=== PATIENT | female | born 1950 | race American Indian/Alaskan Native ===

== ENCOUNTER 2017-06-05 03:31 | Inpatient (IN) | payer MEDICARE, OTHER ==
[2017-06-05] MEDS ORDERED: CATAPRES PO ONE (09:58)
--- NOTE | 2017-06-05 09:59 | Emergency Department Report ---
Chief Complaint: Headache Stated Complaint: POSS HIGH BP Time Seen by Provider: 06/05/17 09:54 - HPI History of Present Illness: Patient is a 67-year-old female with a history of high blood pressure on the sugar pill and atenolol who presents to ED for elevated blood pressure. Patient states she had a recent friend on and she went to go see her body yesterday. Patient states since yesterday she is elevated blood pressure with mild generalized 6/10 headache. She denies blurry vision, trauma to the head she denies fever chills nausea vomiting chest pain or shortness of breath. - ROS Review of Systems: As noted in HPI - Exam Vital Signs: Vital Signs 06/05/17 06/05/17 04:05 09:41 Temperature 98 F 98.5 F Pulse Rate 74 74 Respiratory 18 18 Rate Blood Pressure 176/87 169/103 O2 Sat by Pulse 97 100 Oximetry Physical Exam: GENERAL: Alert and oriented x3, no apparent distress, Normal Gait, atraumatic. HEAD: Head is normocephalic and a-traumatic. HEART: S1, S2 present, regular rate and rhythm without murmur, no rubs, no gallops. Non tender to palpation NEUROLOGIC: The patient is cooperative with no focal neurologic deficits.Normal speech. MSE screening note: Focused history and physical exam performed. Due to findings the following was ordered: ED Medical Decision Making - Medical Decision Making Basic labs ordered. EKG ordered. Patient is in no acute distress. Patient possibly could be seen by FT provider if blood pressure response to one dose of clonidine. Normal labs ED Disposition for MSE Condition: Stable
[2017-06-05 10:36] LABS: Basophils % (Auto) 0.4 % (0.0-1.8); Eosinophils % (Auto) 1.4 % (0.0-4.3); Hematocrit 42.9 % (30.3-42.9); Hemoglobin 13.6 gm/dl (10.1-14.3); Mean Corpuscular HGB Conc 32 % (30-34); Mean Corpuscular Hemoglobin 29 pg (28-32); Mean Corpuscular Volume 90 fl (79-97); Platelet Count 193 K/mm3 (140-440); Red Blood Count 4.75 M/mm3 (3.65-5.03); Red Cell Distribution Width 14.2 % (13.2-15.2); White Blood Count 9.2 K/mm3 (4.5-11.0)
[2017-06-05] MEDS ORDERED: APRESOLINE IV ONE (10:47)
[2017-06-05] MEDS ORDERED: NITROSTAT SL PRN (10:47)
--- NOTE | 2017-06-05 10:49 | Emergency Department Report ---
ED General Adult HPI - General Chief complaint: Headache Stated complaint: POSS HIGH BP Time Seen by Provider: 06/05/17 09:54 Source: patient, RN notes reviewed Mode of arrival: Ambulatory Limitations: No Limitations - History of Present Illness Initial comments: This is a 67-year-old female. She is previously unknown to me. Her primary care doctor's with the [facility]. She has a past medical history of hypertension and hammertoes. The patient presents to the ER with headache. The headache started this past . She describes the headache as "thumping." The headache is not sudden or thunderclap in nature. It is not maximal in intensity. It is not the worst headache of her life. It got worse over the weekend. It waxes and wanes. There is no blurry vision, loss of vision, or pain with chewing or swallowing food. There is no extremity weakness or numbness. There is no abdominal pain. There is no ataxia. Patient reports that she has been taking atenolol and lisinopril. Patient also admitted to chest pressure and burning on review of systems. The chest pressure as central and left-sided, and lasted for 15 minutes in the morning. It was not associated with vomiting, shortness of breath or diaphoresis. There is no leg pain. There is no leg swelling. No recent trips greater than 4 hours. No recent hospitalizations. No recent cardiac stress test. -: Gradual Location: head, chest Radiation: non-radiation Severity scale (0 -10): 0 Quality: stabbing Consistency: intermittent Improves with: none Worsens with: none Associated Symptoms: chest pain, headaches - Related Data Home Medications Medication Instructions Recorded Confirmed Last Taken Atenolol [Tenormin] 25 mg PO DAILY 06/05/17 06/05/17 06/04/17 Lisinopril/Hydrochlorothiazide 2 each PO DAILY 06/05/17 06/05/17 06/04/17 [Zestoretic 20-12.5 mg] Meloxicam [Mobic] 7.5 mg PO QDAY 06/05/17 06/05/17 Unknown Potassium Chloride [K-Dur] 20 meq PO DAILY 06/05/17 06/05/17 Unknown traMADol [Ultram] 50 mg PO Q6HR PRN 06/05/17 06/05/17 06/04/17 Allergies Allergy/AdvReac Type Severity Reaction Status Date / Time No Known Allergies Allergy Verified 06/05/17 11:23 ED Review of Systems ROS: Stated complaint: POSS HIGH BP Other details as noted in HPI Constitutional: malaise. denies: fever Eyes: denies: eye discharge, vision change ENT: denies: throat pain Respiratory: denies: cough Cardiovascular: chest pain Gastrointestinal: denies: vomiting Genitourinary: as per HPI Musculoskeletal: as per HPI Skin: as per HPI Neurological: as per HPI, headache Psychiatric: as per HPI ED Past Medical Hx - Past Medical History Previous Medical History?: Yes Hx Hypertension: Yes - Surgical History Past Surgical History?: Yes Additional Surgical History: HAMMER TOES - Social History Smoking Status: Never Smoker Substance Use Type: None - Medications Home Medications: Home Medications Medication Instructions Recorded Confirmed Last Taken Type Atenolol [Tenormin] 25 mg PO DAILY 06/05/17 06/05/17 06/04/17 History Lisinopril/Hydrochlorothiazide 2 each PO DAILY 06/05/17 06/05/17 06/04/17 History [Zestoretic 20-12.5 mg] Meloxicam [Mobic] 7.5 mg PO QDAY 06/05/17 06/05/17 Unknown History Potassium Chloride [K-Dur] 20 meq PO DAILY 06/05/17 06/05/17 Unknown History traMADol [Ultram] 50 mg PO Q6HR PRN 06/05/17 06/05/17 06/04/17 History ED Physical Exam - General Limitations: No Limitations General appearance: alert, in no apparent distress - Head Head exam: Present: atraumatic, normocephalic - Eye Eye exam: Present: normal appearance, PERRL, EOMI, other (visual acuity intact to finger counting, color perception, reading at a close distance). Absent: nystagmus - ENT ENT exam: Present: normal exam, normal orophraynx, mucous membranes moist, normal external ear exam - Neck Neck exam: Present: normal inspection, full ROM. Absent: tenderness, meningismus - Respiratory Respiratory exam: Present: normal lung sounds bilaterally. Absent: respiratory distress, wheezes, rales, rhonchi, stridor, chest wall tenderness, accessory muscle use, decreased breath sounds, prolonged expiratory - Cardiovascular Cardiovascular Exam: Present: regular rate, normal rhythm, normal heart sounds. Absent: bradycardia, tachycardia, irregular rhythm, systolic murmur, diastolic murmur, rubs, gallop - GI/Abdominal GI/Abdominal exam: Present: soft, normal bowel sounds. Absent: distended, tenderness, guarding, rebound, rigid, pulsatile mass - Extremities Exam Extremities exam: Present: normal inspection, full ROM, normal capillary refill. Absent: tenderness, pedal edema, joint swelling, calf tenderness - Back Exam Back exam: Present: normal inspection, full ROM. Absent: tenderness, CVA tenderness (R), CVA tenderness (L), muscle spasm, paraspinal tenderness, vertebral tenderness - Neurological Exam Neurological exam: Present: alert, oriented X3, normal gait, other (Extraocular movements intact. Tongue midline. No facial droop. Facial sensation intact to light touch in the V1, V2, V3 distribution bilaterally. 5 and 5 strength in 4 extremities.. Sensation is intact to light touch in 4 extremities.). Absent : motor sensory deficit - Psychiatric Psychiatric exam: Present: normal affect, normal mood - Skin Skin exam: Present: warm, dry, intact, normal color. Absent: rash ED Course Vital Signs 06/05/17 06/05/17 06/05/17 04:05 09:41 10:19 Temperature 98 F 98.5 F Pulse Rate 74 74 74 Respiratory 18 18 Rate Blood Pressure 176/87 169/103 169/103 Blood Pressure [Left] O2 Sat by Pulse 97 100 Oximetry 06/05/17 06/05/17 06/05/17 10:30 10:41 10:42 Temperature Pulse Rate 82 85 86 Respiratory 19 20 18 Rate Blood Pressure 202/103 Blood Pressure 200/99 [Left] O2 Sat by Pulse 97 98 97 Oximetry 06/05/17 06/05/17 06/05/17 10:56 11:04 11:15 Temperature Pulse Rate 80 Respiratory 18 Rate Blood Pressure 202/103 182/108 Blood Pressure [Left] O2 Sat by Pulse 97 100 Oximetry 06/05/17 06/05/17 06/05/17 11:16 11:21 11:30 Temperature Pulse Rate 113 H Respiratory 15 Rate Blood Pressure 182/108 182/108 143/79 Blood Pressure [Left] O2 Sat by Pulse 90 98 96 Oximetry 06/05/17 06/05/17 06/05/17 11:41 11:51 12:00 Temperature Pulse Rate 101 H 109 H 101 H Respiratory 21 22 22 Rate Blood Pressure 143/79 182/108 113/51 Blood Pressure [Left] O2 Sat by Pulse 97 97 96 Oximetry 06/05/17 06/05/17 06/05/17 12:11 12:21 12:30 Temperature Pulse Rate 91 H 89 94 H Respiratory 20 19 19 Rate Blood Pressure 113/51 115/59 105/57 Blood Pressure [Left] O2 Sat by Pulse 96 98 97 Oximetry 06/05/17 06/05/17 06/05/17 12:41 12:51 13:00 Temperature Pulse Rate 97 H 89 88 Respiratory 15 17 14 Rate Blood Pressure 105/57 101/52 97/56 Blood Pressure [Left] O2 Sat by Pulse 98 95 97 Oximetry 06/05/17 06/05/17 06/05/17 13:11 13:30 13:41 Temperature Pulse Rate 86 76 71 Respiratory 15 18 16 Rate Blood Pressure 97/56 99/49 99/49 Blood Pressure [Left] O2 Sat by Pulse 97 98 97 Oximetry 06/05/17 06/05/17 06/05/17 14:00 14:11 14:21 Temperature Pulse Rate 67 67 69 Respiratory 14 15 19 Rate Blood Pressure 85/47 85/47 87/43 Blood Pressure [Left] O2 Sat by Pulse 99 97 98 Oximetry 06/05/17 06/05/17 06/05/17 14:30 14:35 14:41 Temperature 97.8 F Pulse Rate 77 65 76 Respiratory 29 H 17 13 Rate Blood Pressure 92/40 92/40 Blood Pressure 90/45 [Left] O2 Sat by Pulse 98 99 98 Oximetry - Reevaluation(s) Reevaluation #1: 06/05/17 11:44 differential diagnosis: Migraine headache, tension headache, cluster headache, intracranial hemorrhage, hypertensive urgency, acute coronary syndrome, pneumonia, GERD, gastritis Assessment and plan: 67-year-old female with a primary complaint of headache and hypertension. She is afebrile with reassuring vital signs with the exception of hypertension/elevated blood pressure. Her headache is not historically consistent with subarachnoid hemorrhage or temporal arteritis. She has a GCS of 15, with an NIH score of 0, there is no temporal tenderness, and there is no jaw claudication. A noncontrast CT scan of the brain is negative. There are no pulmonary embolus or DVT risk factors, and the patient is low risk by well's criteria. Her initial EKG is morphologically abnormal and concerning, with ST abnormalities in the inferior and lateral leads, and ST abnormalities in aVR, V1 and V2. Does not morphologically consistent with STEMI , and repeat EKG did not demonstrate any emergent changes, with the exception of some premature ventricular contractions. The case is discussed with cardiology, Dr. Houston, who will follow as a consult for abnormal EKG in the context of hypertension. The case is presented to the Hospital physician, Dr. Colbert, who accepts the patient to his service. The case is discussed with the [place] physician on-call, Dr. Ceasar Alvarado, who has sent the patient's old/prior EKGs, and he appeared to be changed when compared the patient's current EKGs. Currently, the patient is pain-free, resting comfortably, in no distress. ED Medical Decision Making - Lab Data Result diagrams: 06/05/17 10:06 06/05/17 10:06 Vital Signs 06/05/17 06/05/17 06/05/17 04:05 09:41 10:19 Temperature 98 F 98.5 F Pulse Rate 74 74 74 Respiratory 18 18 Rate Blood Pressure 176/87 169/103 169/103 Blood Pressure [Left] O2 Sat by Pulse 97 100 Oximetry 06/05/17 06/05/17 06/05/17 10:42 10:56 11:15 Temperature Pulse Rate 86 80 Respiratory 18 18 Rate Blood Pressure 182/108 Blood Pressure 200/99 [Left] O2 Sat by Pulse 97 97 Oximetry Lab Results 06/05/17 06/05/17 Range/Units 10:06 10:06 WBC 9.2 (4.5-11.0) K/mm3 RBC 4.75 (3.65-5.03) M/mm3 Hgb 13.6 (10.1-14.3) gm/dl Hct 42.9 (30.3-42.9) % MCV 90 (79-97) fl MCH 29 (28-32) pg MCHC 32 (30-34) % RDW 14.2 (13.2-15.2) % Plt Count 193 (140-440) K/mm3 Lymph % (Auto) 22.7 (13.4-35.0) % [place] % (Auto) 10.5 H (0.0-7.3) % Eos % (Auto) 1.4 (0.0-4.3) % Baso % (Auto) 0.4 (0.0-1.8) % Lymph # 2.1 (1.2-5.4) K/mm3 [place] # 1.0 H (0.0-0.8) K/mm3 Eos # 0.1 (0.0-0.4) K/mm3 Baso # 0.0 (0.0-0.1) K/mm3 Seg Neutrophils % 65.0 (40.0-70.0) % Seg Neutrophils # 6.0 (1.8-7.7) K/mm3 Sodium 141 (137-145) mmol/L Potassium 2.8 L* (3.6-5.0) mmol/L Chloride 93.9 L (98-107) mmol/L Carbon Dioxide 29 (22-30) mmol/L Anion Gap 21 mmol/L BUN 17 (7-17) mg/dL Creatinine 0.6 L (0.7-1.2) mg/dL Estimated GFR > 60 ml/min BUN/Creatinine Ratio 28.33 % Glucose 96 (65-100) mg/dL Calcium 9.7 (8.4-10.2) mg/dL - EKG Data When compared to previous EKG there are: changes noted 06/05/17 11:47 EKG #1 demonstrates sinus, 64 bpm, normal intervals, normal axis, ST depression in the inferior and lateral leads, poor R progression, not morphologically consistent with STEMI, appears changed when compared to prior EKG from [facility], 01/02/2017. EKG #2 demonstrates sinus, 86 bpm, premature ventricular contractions, persistent ST abnormalities in the inferior and lateral leads, improvement in poor PROGRESSION, not morphologically consistent with STEMI - Radiology Data Radiology results: report reviewed, image reviewed interpreted by me: X-ray of the chest is negative for acute disease Noncontrast CT scan of the brain demonstrates no findings that are acute. Chronic changes noted Critical care attestation.: If time is entered above; I have spent that time in minutes in the direct care of this critically ill patient, excluding procedure time. ED Disposition Clinical Impression: Hypertensive urgency, Acute electrocardiogram changes, Hypokalemia Headache Qualifiers: Headache type: tension-type Disposition: OP ADMIT IP TO THIS HOSP Is pt being admited?: Yes Does the pt Need Aspirin: Yes Condition: Stable
[2017-06-05 10:54] LABS: Anion Gap 21 mmol/L; BUN/Creatinine Ratio 28.33; Blood Urea Nitrogen 17 mg/dL (7-17); Calcium 9.7 mg/dL (8.4-10.2); Carbon Dioxide 29 mmol/L (22-30); Chloride 93.9 mmol/L (98-107); Glucose 96 mg/dL (65-100); Sodium 141 mmol/L (137-145)
--- NOTE | 2017-06-05 11:11 | Cat Scan Report ---
Cranial CT without contrast. History: Hypertension/headache. Findings: There is no evidence of an acute hemorrhage or infarct. The posterior fossa is unremarkable. The ventricles are normal in size and contour. There are no masses or extra-axial collections. Mild hypodensities are seen in the periventricular white matter. The calvarium is intact. Impression: No acute findings.
[2017-06-05 11:15] LABS: Potassium 2.8 mmol/L (3.6-5.0)
[2017-06-05] MEDS ORDERED: MAGNESIUM SULFATE 2GM/50ML 2 GM/50 ML BAG IV ONE (11:21)
[2017-06-05] MEDS ORDERED: K-DUR PO ONE ×3 (11:21→14:49)
--- NOTE | 2017-06-05 11:46 | XRay Report ---
ROUTINE CHEST, TWO VIEWS: HISTORY: chest pain. The trachea, heart, mediastinal contour, lung mi and bony thorax are unremarkable. IMPRESSION: Unremarkable chest x-ray.
[2017-06-05] MEDS ORDERED: BABY ASPIRIN PO ONE (11:48)
[2017-06-05 12:00] LABS: INR 0.98 (0.87-1.13)
--- NOTE | 2017-06-05 12:03 | Admit Criteria Form ---
Admission Criteria Documentation: CARDIOLOGY GRG Clinical Indications for Admission to Inpatient Care ( Place 'X' for any and all applicable criteria): Hospital admission is needed for appropriate care of the patient because of ANY ONE of the following (1): [ ] I. Hemodynamic instability as indicated by ALL of the following (1)(2)(3) (4)(5) [ ]a) Vital signs or other findings not as expected for chronic patient condition or baseline [ ]b) Instability indicated by ANY ONE of the following: [ ]i) Hypotension [ ]ii) Symptomatic Tachycardia unresponsive to treatment ( e.g., analgesia, fluids, sedation as indicated) [ ]iii) Inadequate perfusion indicated by ANY ONE of the following: [ ] 1) Lactic acidosis (> 2 mmol/L) [ ] 2) New abnormal capillary refill (> 3 seconds) [ ] 3) Reduced urine output [ ] 4) New altered mental status [ ]iv) Orthostatic vital sign changes unresponsive to treatment (e.g., fluids) [ ]v) IV inotropic or vasopressor medication required to maintain adequate blood pressure or perfusion [ ] II. Severe heart failure as indicated by ANY ONE of the following(17)(18) [ ]a) Respiratory distress [ ]b) Hypotension [ ]c) Anasarca (refractory to outpatient therapy) [ ]d) Cardiac arrhythmias of immediate concern [ ]e) Myocardial ischemia [ ] III. Cardiac arrhythmias or findings of immediate concern indicated by ANY ONE of the following (19)(20): [ ] a) Heart rhythms that are inherently dangerous or unstable indicated by ANY ONE of the following (21)(22)(23): [ ] i) Resuscitated ventricular fibrillation or cardiac arrest [ ] ii) Ventricular escape rhythm [ ] iii) Sustained ventricular tachycardia (30 seconds or more of ventricular rhythm at greater than 100 beats per minute) [ ] iv) Nonsustained ventricular tachycardia and ANY ONE of the following: [ ] 1) Suspected cardiac ischemia as cause or consequence of ventricular tachycardia [ ] 2) In setting of acute myocarditis [ ] b) Unstable cardiac conduction defects indicated by ANY ONE of the following(23)(24)(25) [ ] i) Type II second-degree atrioventricular block [ ]ii) Third-degree atrioventricular block [ ]iii) New-onset left bundle branch block with suspected myocardial ischemia [ ]c) Any heart rhythm and ANY ONE of the following (21)(22)(26)(27) (28) [ ] i) Continuous long-term ECG monitoring needed (e.g., initiation of drug requiring monitoring for more than 24 hours) [ ] ii) Patient has automatic implanted cardioverter defibrillator that is repeatedly firing, malfunctioning, or in need of immediate adjustment of settings beyond the scope of ambulatory or observation care [ ]d) Heart rhythms of concern due to ANY ONE of the following: [ ] i) Hypotension [ ] ii) Respiratory distress [ ] iii) Association with other significant symptoms (e.g., bradycardia with syncope or ongoing dizziness, supraventricular tachycardia with chest pain (14)(15)(17) [ ] IV. Monitoring for cardiac contusion beyond the scope of observation care needed [A](30)(31)(32) [ ] V. Surgical or device complication (e.g., valve replacement complication , pacemaker dysfunction) (35)(41)(44)(45)(46) [ ] . Inpatient palliative care needed. [B](49) Also use Inpatient Palliative Care Criteria [ ] VII. Nonbacterial thrombotic (marantic) endocarditis (36)(43)(47)(48) [X] VIII. Cardiology condition, symptom, or finding for which emergency and observation care has failed or are not considered appropriate. [ ] IX. Acute valvular disease requiring inpatient as indicated by ANY ONE of the following (41) [ ]a) Acute valvular regurgitation (42) [ ]b) Noninfectious valvulitis (43) [ ]c) Obstructive valve thrombosis [ ]d) Paravalvular leak [ ]e) Other significant valvular disorder remaining after emergency or observation level of care (as appropriate) [ ]X. Pericardial disease requiring inpatient treatment as indicated by ANY ONE of the following (33)(34)(35)(36)(37) [ ]a) Suspected tamponade (38)(39)(40) [ ]b) Hemopericardium [ ]c) Other significant pericardial disorder remaining after emergency or observation level of care (as appropriate) [ ] XI. Cardiac ischemia beyond scope of emergency and observation care. [ ] XII. Hypertension requiring inpatient treatment as indicated by ANY ONE of the following (6)(7)(8) [ ]a) SBP greater than 220 mm Hg or DBP greater than 120 mmHg despite treatment [ ]b) SBP greater than 140 mm Hg or DBP greater than 100 mm Hg with evidence of acute end organ damage as indicated by ANY ONE of the following [ ] i) Altered mental status [ ] ii) Acute renal failure as indicated by new onset of ANY ONE of the following (9)(10)(11)(12)(13) [ ]1) 3-fold rise in serum creatinine from baseline [ ]2) Serum creatinine greater than 4 mg/dL ( 354 micromoles/L) with acute rise greater than 0.5 mg/dL (44.2 micromoles/L) [ ]3) Reduction of more than 75% in estimated glomerular filtration rate from baseline [ ]4) Estimated glomerular filtration rate less than 35 mL/min/1.73m2 (0.59 mL/sec/1.73m2) in child up to 18 years of age [ ]5) Cessation of urine output indicated by ALL of the following [ ]A. Adequate volume status [ ]B. Inadequate urine output as indicated by ANY ONE of the following [ ]a. Urine output less than 0.3 mL/kg/hr for 24 hours [ ]b. Anuria (urine output less than 0.1 mL/kg/hr) for 12 hours [ ] iii) Aortic dissection [ ] iv) Myocardial Ischemia [ ] v) Left ventricular heart failure [ ]vi) Retinal Hemorrhage [ ]vii) Other significant finding [ ]c) Hypertension in child requiring inpatient treatment as indicated by ALL of the following(14)(15)(16) [ ] i) Outpatient treatment not effective, not available, or not appropriate [ ]ii) SBP or DBP greater than 95th percentile for age [ ]iii) Evidence of acute end organ damage as indicated by ANY ONE of the following [ ]1) Altered mental status [ ]2) Acute renal failure as indicated by new onset of ANY ONE of the following(9)(10)(11)(12)(13) [ ]A. 3-fold rise in serum creatinine from baseline [ ]B. Serum creatinine greater than 4 mg/dL (354 micromoles/L) with acute rise greater than 0.5 mg/dL (44.2 micromoles/L) [ ]C. Reduction of more than 75% in estimated glomerular filtration rate from baseline [ ]D. Estimated glomerular filtration rate less than 35 mL/min/1.73m2 (0.59 mL/sec/1.73m2) in child up to 18 years of age [ ]E. Cessation of urine output indicated by ALL of the following [ ]a. Adequate volume status [ ]b. Inadequate urine output as indicated by ANY ONE of the following [ ]i) Urine output less than 0.3 mL/kg/hr for 24 hours [ ]ii) Anuria ( urine output less than 0.1 mL/kg/hr) for 12 hours [ ]3) Severe headache [ ]4) Visual disturbance [ ]5) Retinal hemorrhage [ ]6) Other significant finding [ ]XIII. Complications of transplanted heart indicated by ANY ONE of the following(61): [ ]a) Acute graft rejection requiring inpatient management (eg, intravenous immunosuppression)(62)(63) [ ]b) Acute graft heart failure indicated by ANY ONE of the following(64): [ ]i) Hemodynamic instability [ ]ii) Cardiac arrhythmias of immediate concern [ ]iii) Pulmonary edema that is very severe (eg, mechanical ventilation needed, imminent or likely, need for 100% oxygen to keep oxygen saturation above 90%) [ ]iv) Pulmonary edema that is persistent as indicated by ALL of the following: [ ]1) New need for oxygen therapy to keep oxygen saturation above 90% (or increased FiO2 need from baseline) [ ]2) Has not improved sufficiently with emergency department or observation care IV diuretics or other heart failure treatments[E] [ ]v) Altered mental status that is severe or persistent [ ]vi) Increased creatinine (new on laboratory test) with reduction of more than 50% in estimated glomerular filtration rate from baseline [ ]vii) Progressively (ongoing) rising creatinine (known from past laboratory test) with reduction of more than 25% in estimated glomerular filtration rate from baseline [ ]viii) Acute renal failure [ ]ix) Acute peripheral ischemia (eg, examination shows pulseless, cool, mottled, or cyanotic extremity) [ ]x) Pulmonary artery catheter monitoring needed [ ]xi) Other sign or symptom of heart failure requiring inpatient treatment (ie, too severe or not responsive to outpatient and observation care treatment) [ ]c) Infection requiring inpatient management (eg, Hemodynamic instability, need for intravenous antimicrobial treatment)(66)(67)(68)(69)(70) [ ]d) Cardiac allograft vasculopathy requiring inpatient management ( eg evidence of cardiac ischemia)(71) [ ]e) Other complication of transplanted heart (eg, stroke, severe pulmonary hypertension, severe valvular dysfunction) requiring inpatient management(72) The original [facility] [employer] content created by [employer] [facility] [employer] has been revised. The portions of the content which have been revised are identified through the use of italic text or in bold, and [facility] has neither reviewed nor approved the modified material. All other unmodified content is copyright [facility] [employer]. Please see references footnoted in the original [facility] [employer] edition 2016 Admission Criteria Met: Yes
--- NOTE | 2017-06-05 12:37 | Consultation ---
History of Present Illness Consult date: 06/05/17 Consult reason: other (Abnormal ECG) History of present illness: 67yr old woman who presented to the Emergency department with complaints of uncontrolled hypertension associated with headaches and dizziness. Last night, patient reports she checked her blood pressure at home, noted a systolic BP greater than 200 and called EMS. Patient reports she takes atenolol and lisionpril for hypertension management but her blood pressure has been elevated over the last few days. Her ECG shows a sinus rhythm with nonspecific ST abnormalities thus this cardiac consultations. Patient denies chest pain and shortness of breath. She denies palpitations. There was no syncope. Patient denies prior cardiac history. She also denies prior cardiac workup. Laboratory studies shows a low potassium of 2.8. Past History Past Medical History: hypertension Medications and Allergies Allergies Allergy/AdvReac Type Severity Reaction Status Date / Time No Known Allergies Allergy Verified 06/05/17 11:23 Home Medications Medication Instructions Recorded Confirmed Last Taken Type Atenolol [Tenormin] 25 mg PO DAILY 06/05/17 06/05/17 06/04/17 History Lisinopril/Hydrochlorothiazide 2 each PO DAILY 06/05/17 06/05/17 06/04/17 History [Zestoretic 20-12.5 mg] Meloxicam [Mobic] 7.5 mg PO QDAY 06/05/17 06/05/17 Unknown History Potassium Chloride [K-Dur] 20 meq PO DAILY 06/05/17 06/05/17 Unknown History traMADol [Ultram] 50 mg PO Q6HR PRN 06/05/17 06/05/17 06/04/17 History Active Meds: Active Medications Potassium Chloride (Kcl 10meq/100ml) 10 meq in 100 mls @ 100 mls/hr IV Q1H DIOGENES Stop: 06/05/17 13:59 Nitroglycerin (Nitrostat) 0.4 mg SL .Q5MIN PRN PRN Reason: Chest Pain Physical Examination Vital Signs Temp Pulse Resp BP Pulse Ox 98 F 74 18 176/87 97 06/05/17 04:05 06/05/17 04:05 06/05/17 04:05 06/05/17 04:05 06/05/17 04:05 General appearance: no acute distress HEENT: Positive: PERRL Neck: Positive: trachea midline Cardiac: Positive: Reg Rate and Rhythm Lungs: Positive: Decreased Breath Sounds Neuro: Positive: Grossly Intact Extremities: Absent: edema Results 06/05/17 10:06 06/05/17 10:06 Coagulation 06/05/17 Range/Units 11:15 PT 13.5 (12.2-14.9) Sec. INR 0.98 (0.87-1.13) CBC 06/05/17 Range/Units 10:06 WBC 9.2 (4.5-11.0) K/mm3 RBC 4.75 (3.65-5.03) M/mm3 Hgb 13.6 (10.1-14.3) gm/dl Hct 42.9 (30.3-42.9) % Plt Count 193 (140-440) K/mm3 Lymph # 2.1 (1.2-5.4) K/mm3 [place] # 1.0 H (0.0-0.8) K/mm3 Eos # 0.1 (0.0-0.4) K/mm3 Baso # 0.0 (0.0-0.1) K/mm3 Comprehensive Metabolic Panel 06/05/17 Range/Units 10:06 Sodium 141 (137-145) mmol/L Potassium 2.8 L* (3.6-5.0) mmol/L Chloride 93.9 L (98-107) mmol/L Carbon Dioxide 29 (22-30) mmol/L BUN 17 (7-17) mg/dL Creatinine 0.6 L (0.7-1.2) mg/dL Glucose 96 (65-100) mg/dL Calcium 9.7 (8.4-10.2) mg/dL Assessment and Plan Hypertension -uncontrolled no acute findings on head CT. Hypokalemia
[2017-06-05] MEDS: KCL 10MEQ/100ML 10 MEQ/100 ML BAG IV SCH ×2 (12:38→14:49)
[2017-06-05] MEDS ORDERED: NACL 0.9% 1000 ML 1,000 ML IV ONE (14:47)
[2017-06-05] MEDS ORDERED: NACL 0.9% 1000 ML 1,000 ML ONE (14:49)
[2017-06-05] MEDS ORDERED: MILK OF MAGNESIA PO PRN (20:47)
--- NOTE | 2017-06-05 21:56 | History and Physical Report ---
History of Present Illness Date of examination: 06/05/17 Date of admission: 06/05/17 11:48 Chief complaint: L chest pressure History of present illness: This is a 67-year-old female with pmh of HTN presents to the ER with headache and chest pain.. The headache started this past . She describes the headache as "thumping." The headache is not sudden or thunderclap in nature. It is not maximal in intensity. It is not the worst headache of her life. It got worse over the weekend. It waxes and wanes. There is no blurry vision, loss of vision, or pain with chewing or swallowing food. There is no extremity weakness or numbness. There is no abdominal pain. There is no ataxia. Patient reports that she has been taking atenolol and lisinoprilfor HTn. Patient also admitted to chest pressure and burning on review of systems. The chest pressure as central and left-sided, and lasted for 15 minutes in the morning. It was not associated with vomiting, shortness of breath or diaphoresis. There is no leg pain. There is no leg swelling. No recent trips greater than 4 hours. No recent hospitalizations. No recent cardiac stress test. -: Gradual Location: head, chest Radiation: non-radiation Severity scale (0 -10): 0 Quality: stabbing Consistency: intermittent Improves with: none Worsens with: none Associated Symptoms: chest pain, headaches ED Review of Systems ROS: Stated complaint: POSS HIGH BP Other details as noted in HPI ED Past Medical Hx - Past Medical History Previous Medical History?: Yes Hx Hypertension: Yes - Surgical History Past Surgical History?: Yes Additional Surgical History: HAMMER TOES - Social History Smoking Status: Never Smoker Substance Use Type: None Past History Past Medical History: hypertension Medications and Allergies Allergies Allergy/AdvReac Type Severity Reaction Status Date / Time No Known Allergies Allergy Verified 06/05/17 11:23 Home Medications Medication Instructions Recorded Confirmed Last Taken Type Atenolol [Tenormin] 25 mg PO DAILY 06/05/17 06/05/17 06/04/17 History Lisinopril/Hydrochlorothiazide 2 each PO DAILY 06/05/17 06/05/17 06/04/17 History [Zestoretic 20-12.5 mg] Meloxicam [Mobic] 7.5 mg PO QDAY 06/05/17 06/05/17 Unknown History Potassium Chloride [K-Dur] 20 meq PO DAILY 06/05/17 06/05/17 Unknown History traMADol [Ultram] 50 mg PO Q6HR PRN 06/05/17 06/05/17 06/04/17 History Active Meds: Active Medications Magnesium Hydroxide (Milk Of Magnesia) 30 ml PO QDAY PRN PRN Reason: Constipation Nitroglycerin (Nitrostat) 0.4 mg SL .Q5MIN PRN PRN Reason: Chest Pain Pneumococcal Polyvalent Vaccine (Pneumovax 23) 0.5 ml IM .ONCE ONE Stop: 06/06/17 12:01 Review of Systems All systems: negative Exam - Physical Exam Narrative exam: Comfortable - Constitutional Vitals: Temp Pulse Resp BP Pulse Ox 97.9 F 76 19 114/68 97 06/05/17 20:00 06/05/17 20:00 06/05/17 20:00 06/05/17 20:00 06/05/17 20:00 General appearance: Present: no acute distress, well-nourished - EENT Eyes: Present: PERRL ENT: hearing intact, clear oral mucosa - Neck Neck: Present: supple, normal ROM - Respiratory Respiratory effort: normal Respiratory: bilateral: CTA - Cardiovascular Heart Sounds: Present: S1 & S2. Absent: rub, click - Extremities Extremities: pulses symmetrical, No edema Peripheral Pulses: within normal limits - Abdominal General gastrointestinal: Present: soft, non-tender, non-distended, normal bowel sounds Female genitourinary: Present: normal - Integumentary Integumentary: Present: clear, warm, dry - Musculoskeletal Musculoskeletal: gait normal, strength equal bilaterally - Psychiatric Psychiatric: appropriate mood/affect, intact judgment & insight - Neurologic Neurologic: CNII-XII intact, moves all extremities Results - Labs CBC & Chem 7: 06/05/17 10:06 06/05/17 10:06 Labs: Laboratory Last Values WBC 9.2 K/mm3 (4.5-11.0) 06/05/17 10:06 RBC 4.75 M/mm3 (3.65-5.03) 06/05/17 10:06 Hgb 13.6 gm/dl (10.1-14.3) 06/05/17 10:06 Hct 42.9 % (30.3-42.9) 06/05/17 10:06 MCV 90 fl (79-97) 06/05/17 10:06 MCH 29 pg (28-32) 06/05/17 10:06 MCHC 32 % (30-34) 06/05/17 10:06 RDW 14.2 % (13.2-15.2) 06/05/17 10:06 Plt Count 193 K/mm3 (140-440) 06/05/17 10:06 Lymph % (Auto) 22.7 % (13.4-35.0) 06/05/17 10:06 [place] % (Auto) 10.5 % (0.0-7.3) H 06/05/17 10:06 Eos % (Auto) 1.4 % (0.0-4.3) 06/05/17 10:06 Baso % (Auto) 0.4 % (0.0-1.8) 06/05/17 10:06 Lymph # 2.1 K/mm3 (1.2-5.4) 06/05/17 10:06 [place] # 1.0 K/mm3 (0.0-0.8) H 06/05/17 10:06 Eos # 0.1 K/mm3 (0.0-0.4) 06/05/17 10:06 Baso # 0.0 K/mm3 (0.0-0.1) 06/05/17 10:06 Seg Neutrophils % 65.0 % (40.0-70.0) 06/05/17 10:06 Seg Neutrophils # 6.0 K/mm3 (1.8-7.7) 06/05/17 10:06 PT 13.5 Sec. (12.2-14.9) 06/05/17 11:15 INR 0.98 (0.87-1.13) 06/05/17 11:15 Sodium 141 mmol/L (137-145) 06/05/17 10:06 Potassium 2.8 mmol/L (3.6-5.0) L* 06/05/17 10:06 Chloride 93.9 mmol/L (98-107) L 06/05/17 10:06 Carbon Dioxide 29 mmol/L (22-30) 06/05/17 10:06 Anion Gap 21 mmol/L 06/05/17 10:06 BUN 17 mg/dL (7-17) 06/05/17 10:06 Creatinine 0.6 mg/dL (0.7-1.2) L 06/05/17 10:06 Estimated GFR > 60 ml/min 06/05/17 10:06 BUN/Creatinine Ratio 28.33 % 06/05/17 10:06 Glucose 96 mg/dL (65-100) 06/05/17 10:06 Calcium 9.7 mg/dL (8.4-10.2) 06/05/17 10:06 Troponin T < 0.010 ng/mL (0.00-0.029) 06/05/17 11:05 - Imaging and Cardiology EKG: report reviewed Chest x-ray: report reviewed Assessment and Plan Advance Directives: Yes (Full code) VTE prophylaxis?: Chemical Plan of care discussed with patient/family: Yes - Patient Problems (1) Hypokalemia Current Visit: Yes Status: Acute Plan to address problem: Severe.Supplemented (2) Acute coronary syndrome Current Visit: Yes Status: Acute Plan to address problem: Lexiscsn and Echo ordered.Also serial cardiac enzymes (3) HTN (hypertension) Current Visit: Yes Status: Chronic Qualifiers: Hypertension type: essential hypertension Qualified Code(s): I10 - Essential (primary) hypertension Plan to address problem: Cont Antihypertensives (4) Headache Current Visit: Yes Status: Acute Qualifiers: Headache type: tension-type Headache chronicity pattern: H Intractability : I Plan to address problem: Symptomatic treatment (5) DVT prophylaxis Current Visit: Yes Status: Acute (6) DVT prophylaxis Current Visit: Yes Status: Acute Plan to address problem: on lovenox
[2017-06-05] MEDS ORDERED: HYDROCHLOROTHIAZIDE PO SCH (22:00)
[2017-06-05] MEDS ORDERED: LISINOPRIL PO SCH (22:00)
[2017-06-05] MEDS: TENORMIN PO SCH (22:29)
[2017-06-05] MEDS: ULTRAM PO PRN (22:29)
[2017-06-06] MEDS ORDERED: K-DUR PO SCH ×2 (10:00→21:00)
[2017-06-06] MEDS: KCL 10MEQ/100ML 10 MEQ/100 ML BAG IV SCH ×4 (10:00→19:31)
[2017-06-06] MEDS: ZESTRIL PO SCH (10:42)
[2017-06-06] MEDS: HCTZ PO SCH (10:42)
[2017-06-06] MEDS: TENORMIN PO SCH (10:45)
[2017-06-06] MEDS: K-DUR PO SCH ×3 (11:40→20:15)
[2017-06-06] MEDS ORDERED: PNEUMOVAX 23 IM ONE (12:00)
--- NOTE | 2017-06-06 12:15 | Progress Note ---
Assessment and Plan Assessment and plan: Chest pain. Patient will have further evaluation with echocardiogram and stress thallium in a.m. Continue to follow EKG and cardiac isoenzymes. Hypokalemia. Replete potassium. Hypertension. Resume antihypertensives medications. Headache. Resolved. CT scan negative. DVT prophylaxis. Continue Lovenox. History Interval history: Patient currently denies any chest pain shortness of breath. Hospitalist Physical - Constitutional Vitals: Temp Pulse Resp BP Pulse Ox 98.4 F 60 18 135/78 100 06/06/17 07:05 06/06/17 07:05 06/06/17 07:05 06/06/17 07:05 06/06/17 07:05 General appearance: Present: no acute distress, well-nourished - EENT Eyes: Present: PERRL, EOM intact ENT: hearing intact, clear oral mucosa, dentition normal - Neck Neck: Present: supple, normal ROM - Respiratory Respiratory effort: normal Respiratory: bilateral: CTA - Cardiovascular Rhythm: regular Heart Sounds: Present: S1 & S2. Absent: gallop, rub - Extremities Extremities: no ischemia, No edema, Full ROM - Abdominal General gastrointestinal: soft, non-tender, non-distended, normal bowel sounds - Integumentary Integumentary: Present: clear, warm, dry - Neurologic Neurologic: CNII-XII intact, moves all extremities Results - Labs CBC & Chem 7: 06/05/17 10:06 06/05/17 10:06 Labs: Laboratory Last Values WBC 9.2 K/mm3 (4.5-11.0) 06/05/17 10:06 RBC 4.75 M/mm3 (3.65-5.03) 06/05/17 10:06 Hgb 13.6 gm/dl (10.1-14.3) 06/05/17 10:06 Hct 42.9 % (30.3-42.9) 06/05/17 10:06 MCV 90 fl (79-97) 06/05/17 10:06 MCH 29 pg (28-32) 06/05/17 10:06 MCHC 32 % (30-34) 06/05/17 10:06 RDW 14.2 % (13.2-15.2) 06/05/17 10:06 Plt Count 193 K/mm3 (140-440) 06/05/17 10:06 Lymph % (Auto) 22.7 % (13.4-35.0) 06/05/17 10:06 [place] % (Auto) 10.5 % (0.0-7.3) H 06/05/17 10:06 Eos % (Auto) 1.4 % (0.0-4.3) 06/05/17 10:06 Baso % (Auto) 0.4 % (0.0-1.8) 06/05/17 10:06 Lymph # 2.1 K/mm3 (1.2-5.4) 06/05/17 10:06 [place] # 1.0 K/mm3 (0.0-0.8) H 06/05/17 10:06 Eos # 0.1 K/mm3 (0.0-0.4) 06/05/17 10:06 Baso # 0.0 K/mm3 (0.0-0.1) 06/05/17 10:06 Seg Neutrophils % 65.0 % (40.0-70.0) 06/05/17 10:06 Seg Neutrophils # 6.0 K/mm3 (1.8-7.7) 06/05/17 10:06 PT 13.5 Sec. (12.2-14.9) 06/05/17 11:15 INR 0.98 (0.87-1.13) 06/05/17 11:15 Sodium 141 mmol/L (137-145) 06/05/17 10:06 Potassium 2.8 mmol/L (3.6-5.0) L* 06/05/17 10:06 Chloride 93.9 mmol/L (98-107) L 06/05/17 10:06 Carbon Dioxide 29 mmol/L (22-30) 06/05/17 10:06 Anion Gap 21 mmol/L 06/05/17 10:06 BUN 17 mg/dL (7-17) 06/05/17 10:06 Creatinine 0.6 mg/dL (0.7-1.2) L 06/05/17 10:06 Estimated GFR > 60 ml/min 06/05/17 10:06 BUN/Creatinine Ratio 28.33 % 06/05/17 10:06 Glucose 96 mg/dL (65-100) 06/05/17 10:06 Calcium 9.7 mg/dL (8.4-10.2) 06/05/17 10:06 Troponin T < 0.010 ng/mL (0.00-0.029) 06/05/17 11:05
[2017-06-06] MEDS: LOVENOX SUB-Q SCH (14:00)
[2017-06-07] MEDS: ULTRAM PO PRN ×2 (02:23→16:43)
[2017-06-07] MEDS ORDERED: APRESOLINE IV ONE ×2 (06:34→17:03)
--- NOTE | 2017-06-07 08:15 | Discharge Summary ---
Providers - Providers Date of Admission: 06/05/17 11:48 Date of discharge: 06/07/17 Attending physician: GABY DONG Cardiology Primary care physician: [facility] Hospitalization Reason for admission: cp Condition: Stable Hospital course: This is a 67-year-old female who presented to the emergency department with chief complaint of headache and dizziness. Patient was noted to have uncontrolled hypertension with systolic blood pressure greater than 200 which prompted EMS call. Her ECG showed a sinus rhythm with nonspecific ST abnormalities on admission. However, subsequent EKG revealed subtle ST depression. Therefore, cardiology was consulted. Patient did have abnormal potassium of 2.8 which was repleted. Cardiology recommended echocardiogram and Lexiscan. Echocardiogram will be followed up with complex care nurse and outpatient. Lexiscan results reveal no acute findings. Patient is felt to have received maximal hospital benefit and will be discharged home. Etiology of chest pain likely secondary to GERD. Patient does report a history of reflux. Dedicated discharge time 31 minutes. Disposition: DC- TO HOME OR SELFCARE Time spent for discharge: 31 - Discharge Diagnoses (1) Hypokalemia Status: Acute (2) HTN (hypertension) Status: Chronic Qualifiers: Hypertension type: essential hypertension Qualified Code(s): I10 - Essential (primary) hypertension (3) GERD (gastroesophageal reflux disease) Status: Acute Qualifiers: Esophagitis presence: E Core Measure Documentation - Palliative Care Palliative Care/ Comfort Measures: Not Applicable - Core Measures Any of the following diagnoses?: none Exam - Constitutional Vitals: Temp Pulse Resp BP Pulse Ox 97.2 F L 113 H 20 165/73 98 06/07/17 08:07 06/07/17 08:07 06/07/17 08:07 06/07/17 08:07 06/07/17 08:07 General appearance: Present: no acute distress, well-nourished - EENT Eyes: Present: PERRL ENT: hearing intact, clear oral mucosa - Neck Neck: Present: supple, normal ROM - Respiratory Respiratory effort: normal Respiratory: bilateral: CTA - Cardiovascular Heart Sounds: Present: S1 & S2. Absent: rub, click - Extremities Extremities: pulses symmetrical, No edema Peripheral Pulses: within normal limits - Abdominal General gastrointestinal: Present: soft, non-tender, non-distended, normal bowel sounds Female genitourinary: Present: normal - Integumentary Integumentary: Present: clear, warm, dry - Musculoskeletal Musculoskeletal: gait normal, strength equal bilaterally - Psychiatric Psychiatric: appropriate mood/affect, intact judgment & insight - Neurologic Neurologic: CNII-XII intact, moves all extremities Plan Activity: no restrictions Weight Bearing Status: Full Weight Bearing Diet: renal Follow up with: PRIMARY CARE, [Primary Care Provider] - 7 Days Prescriptions: Atenolol [Tenormin] 25 mg PO DAILY #30 tablet Hydrochlorothiazide [HCTZ] 12.5 mg PO QDAY #30 capsule Lisinopril [Zestril TAB] 40 mg PO QDAY #30 tablet Pantoprazole [Protonix] 40 mg PO QDAY #30 tablet Potassium Chloride [K-Dur] 20 meq PO DAILY #30 tablet traMADol [Ultram 50 MG tab] 50 mg PO Q6HR PRN #20 tablet PRN Reason: Pain
[2017-06-07 09:36] LABS: Anion Gap 16 mmol/L; Blood Urea Nitrogen 12 mg/dL (7-17); Carbon Dioxide 29 mmol/L (22-30); Chloride 102.5 mmol/L (98-107); Glucose 112 mg/dL (65-100); Potassium 3.7 mmol/L (3.6-5.0); Sodium 144 mmol/L (137-145)
--- NOTE | 2017-06-07 09:55 | Progress Note ---
Assessment and Plan Uncontrolled Hypertension no acute findings on head CT. Hypokalemia Abnormal ECG with subtle ST depression in the lateral precordial leads, which were not present on a prior remote ECG. Recommendations: Optimal BP management. Further evaluation of the abnormal ECG with an echocardiogram and a persantine thallium before discharge. Subjective Date of service: 06/07/17 Interval history: Patient has no cardiac complaints. Awaits persantine thallium stress test today. Objective Vital Signs Temp Pulse Pulse Pulse Resp BP BP 06/07/17 08:07 97.2 F L 113 H 20 06/07/17 07:05 62 182/87 06/07/17 04:00 97.8 F 62 18 182/87 06/06/17 22:00 16 06/06/17 20:00 98.2 F 65 20 168/80 06/06/17 14:48 98.4 F 73 18 169/74 BP Pulse Ox 06/07/17 08:07 165/73 98 06/07/17 07:05 06/07/17 04:00 99 06/06/17 22:00 06/06/17 20:00 100 06/06/17 14:48 98 - Physical Examination General: No Apparent Distress HEENT: Positive: PERRL Neck: Positive: trachea midline Cardiac: Positive: Reg Rate and Rhythm Neuro: Positive: Grossly Intact Extremities: Absent: edema - Labs and Meds Comprehensive Metabolic Panel 06/07/17 Range/Units 08:49 Sodium 144 (137-145) mmol/L Potassium 3.7 D (3.6-5.0) mmol/L Chloride 102.5 (98-107) mmol/L Carbon Dioxide 29 (22-30) mmol/L BUN 12 (7-17) mg/dL Creatinine 0.6 L (0.7-1.2) mg/dL Glucose 112 H (65-100) mg/dL Calcium 9.0 (8.4-10.2) mg/dL - Imaging and Cardiology EKG: report reviewed
[2017-06-07] MEDS ORDERED: LOVENOX SUB-Q SCH (10:00)
[2017-06-07] MEDS ORDERED: K-DUR PO SCH (10:00)
[2017-06-07] MEDS ORDERED: LEXISCAN IV ONE (11:21)
[2017-06-07] MEDS ORDERED: PROCARDIA XL PO ONE (13:00)
[2017-06-07] MEDS: HCTZ PO SCH (14:36)
[2017-06-07] MEDS: LOVENOX SUB-Q SCH (14:37)
[2017-06-07] MEDS: TENORMIN PO SCH (14:39)
[2017-06-07] MEDS: ZESTRIL PO SCH (14:40)
[2017-06-07] MEDS ORDERED: ZESTRIL PO ONE (17:02)
[2017-06-07 18:10] VITALS: BP 169/79
[2017-06-08] MEDS ORDERED: PROCARDIA XL PO SCH (10:00)
[2017-06-08] MEDS ORDERED: ZESTRIL PO SCH (10:00)
== END 2017-06-07 19:18 | disposition home or self-care (01) | DRG 392 ==
LOC: ED 03:31 → 4A 11:48
PROVIDERS: ADMIT Internal Medicine; ATTEND Hospitalist
DX: K21.9 Gastro-esophageal reflux disease without esophagitis (principal); I16.0 Hypertensive urgency; E87.6 Hypokalemia; Z23 Encounter for immunization; I10 Essential (primary) hypertension; Z28.21 Immunization not carried out because of patient refusal
CPT/HCPCS: 36415; 70450; 71020; 78452; 80048; 84484; 85025; 85610; 90732; 93005; 93010; 93017; 93306; 96365; 96366; 96375; 99285; A9502; J0360; J1650; J2785; J3475; J3480; J7030

== ENCOUNTER 2017-11-03 00:08 | Emergency (ER) | payer OTHER ==
[2017-11-03] MEDS ORDERED: TORADOL IM ONE (00:56)
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
[2017-11-03 04:27] VITALS: BP 181/87
== END 2017-11-03 03:54 | disposition home or self-care (01) ==
LOC: ED 00:08
DX: S39.012A Strain of muscle, fascia and tendon of lower back, initial encounter (principal); V49.49XA Driver injured in collision with other motor vehicles in traffic accident, initial encounter; Y92.89 Other specified places as the place of occurrence of the external cause; Y93.89 Activity, other specified; Y99.8 Other external cause status
CPT/HCPCS: 72100; 72125; 96372; 99284; J1885